=== PATIENT | female | born 1965 | race Caucasian/White ===

== ENCOUNTER 2020-05-30 13:42 | Inpatient (IN) | payer BC, SELFPAY ==
[2020-05-30 13:43] VITALS: BP 157/95; PULSE 107; RESP 16; TEMP 36.3; O2SAT 99; BMI 30.2
--- NOTE | 2020-05-30 14:02 | CT_ITS ---
STUDY: CT ABDOMEN AND PELVIS WITH CONTRAST REASON FOR EXAM: Female, 54 years old. Abdominal pain. Fever. RADIATION DOSAGE (If Supplied By Facility): CTDIvol = ( 12.86 ) mGy, DLP = ( 776.89 ) mGycm TECHNIQUE: Transaxial images were obtained from the dome of the diaphragm to the symphysis pubis with oral contrast. 100 ml of ISOVUE-300 contrast was administered. Sagittal and coronal images were reconstructed. Individualized dose optimization techniques were used for this CT. COMPARISON: None. FINDINGS: The visualized lung bases are clear. The visualized portions of the heart and pericardium are within normal limits. There are no calcified gallstones present. The liver is within normal limits. There are no suspicious hepatic lesions. The spleen is normal in size. The pancreas is within normal limits. The adrenal glands are within normal limits. There are no renal or ureteral stones. There is no hydronephrosis. There are no focal renal lesions. Normal visualized stomach. There is no bowel obstruction. There is bowel wall thickening noted in the sigmoid colon with adjacent stranding. This is consistent with colitis. There is a 2.6 x 2.2 cm air and fluid collection within the wall of the sigmoid colon which is consistent with an intramural abscess. There is no free air or free fluid. The appendix is visualized and appears normal. The aorta is normal in caliber. The calcifications in the uterus, consistent with fibroids. There are no destructive osseous lesions. CT/Abdomen/Pelvis WITH Contrast IMPRESSION: Colitis in the sigmoid colon. 2.6 x 2.2 cm air and fluid collection within the wall of the sigmoid colon which is consistent with an intramural abscess. Electronically Signed: Carlos Choi, at 16:16 EDT Tel , Service support ,
--- NOTE | 2020-05-30 14:03 | ED.DCSUM_ITS ---
History of Present Illness Chief Complaint: Abd Pain Informant: Patient Onset: Days Context: Gradual Onset Timing: Waxes and wanes Current Severity: Moderate Maximum Severity: Moderate Narrative: Patient presents with lower abdominal pain and cramping. She states symptoms started 4 days ago. This initially was consistent with her IBS flares, however never really calmed down. Last night she developed a fever of 100. Fever did respond to Advil. She was seen by a nurse practitioner at her PCPs office this morning who noted guarding and rebound and sent the patient to the emergency room for further evaluation. Patient reports her last colonoscopy was 7 years ago at which time IBS was diagnosed. She denies any prior abdominal surgeries. - Past Medical History (1) Irritable bowel syndrome Status: Chronic (2) Ankylosing spondylitis Status: Chronic Past Medical History - Allergies and Home Meds Allergies/Adverse Reactions: Allergies ampicillin Allergy (Verified 05/30/20 13:46) Rash Primary Care Physician: Gabriel Mccain III, MD [Primary Care Provider] - Prior records reviewed: Yes Review of Systems General: Reports: Fever. Denies: Chills Eyes: Denies: Visual changes - bilaterally ENT: Denies: Bilateral ear pain Cardiovascular: Denies: Chest pain Respiratory: Denies: Dyspnea, Cough Gastrointestinal: Reports: Abdominal pain. Denies: Vomiting Genitourinary: Denies: Dysuria Musculoskeletal: Denies: Swelling, Extremity Pain Skin: Denies: Rash Neurological: Denies: Headache Hematologic: Denies: Easy bruising, Easy bleeding Allergy: Denies: Uticaria Physical Exam Vital Signs/Narrative: Vital Signs Temp Pulse Resp BP Pulse Ox 05/30/20 13:43 97.3 F L 107 H 16 157/95 H 99 Inital Vital Signs reviewed: Yes General: Well nourished, Well developed Head: Normocephalic ENT: Moist mucous membranes Neck: Supple Cardiovascular: Regular rate, Regular rhythm Respiratory: No distress, CTA bilaterally Abdomen: Soft, Tender - Lower abdominal tenderness with guarding and rebound., Guarding, Rebound tenderness, Hypoactive bowel sounds Back: Nontender Extremities: Nontender Skin: Normal color Neurological: Alert, Oriented x3 Psychological: Normal affect Diagnostic/Tx/Re-eval Impressions Abdomen/Pelvis CT 05/30/20 14:02 IMPRESSION: Colitis in the sigmoid colon. 2.6 x 2.2 cm air and fluid collection within the wall of the sigmoid colon which is consistent with an intramural abscess. Electronically Signed: Carlos Choi, at 16:16 EDT Tel , Service support , 05/30/20 14:02 Abdomen/Pelvis WITH Contrast [CT] Stat Laboratory Results 05/30/20 05/30/20 05/30/20 13:50 13:50 14:45 WBC 11.7 H RBC 4.54 Hgb 14.9 Hct 43.6 MCV 96.0 MCH 32.8 H MCHC 34.2 RDW Std Deviation 44.2 H RDW Coeff of Keren 12.6 Plt Count 315 MPV 8.7 Immature Gran % (Auto) 0.400 Neut % (Auto) 74.2 H Lymph % (Auto) 16.0 L [place] % (Auto) 8.1 Eos % (Auto) 0.8 Baso % (Auto) 0.5 Absolute Neuts (auto) 8.7 H Absolute Lymphs (auto) 1.86 Nucleated RBC % 0 Sodium 138 Potassium 3.6 Chloride 102 Carbon Dioxide 26.0 Anion Gap 10 BUN 8 Creatinine 0.66 Estim Creat Clear Calc 82.19 Est GFR (MDRD) Af Amer 118 Est GFR (MDRD) Non-Af 98 BUN/Creatinine Ratio 12.0 Glucose 90 Calcium 9.3 Urine Color Yellow Urine Clarity Sl. Cloudy Urine pH 6.5 Ur Specific [place] 1.010 Urine Protein Negative Urine Glucose (UA) Normal Urine Ketones 15 H Urine Occult Blood 10 H Urine Nitrite Negative Urine Bilirubin Negative Urine Urobilinogen Normal Ur Leukocyte Esterase 100 H Urine RBC 0-5 SEEN Urine WBC 10-25 SEEN Ur Squamous Epith Cells 0-5 SEEN Urine Bacteria 1+ Urine Mucus 0 SEEN - Medical Decision Making Patient was given morphine and Zofran for pain on arrival. She is given IV fluids. Upon completion of her urinalysis she was given a p.o. dose of Cipro and a urine culture was sent. CT returned with evidence of a 2.6 x 2.2 cm air- fluid collection in the wall of the sigmoid consistent with an intramural abscess. On repeat evaluation patient is resting comfortably. She has never seen any of the general surgeons in town previously. I spoke with Dr. Pati guido. He stated that the size of the abscess would initially be treated with IV antibiotics. He is happy to keep her here locally understanding that if she gets worse she will be taken to the operating room for surgery. Patient voices understanding and agreement with this plan. ED Disposition - Plan for ED Patient: Disposition: Acute Care Hospital [facility] Diagnosis: Abscess of sigmoid colon Referrals: Gabriel Mccain III, MD [Primary Care Provider] -
[2020-05-30 14:20] LABS: Absolute Lymphocyte Count 1.86 X10^3/uL (0.83-4.51); Absolute Neutrophil Count 8.7 X10^3/uL (2.0-7.7); Basophil# 0.06 X10^3/uL; Basophil% 0.5 % (0-1); Eosinophil# 0.09 X10^3/uL; Eosinophils% 0.8 % (0-5); Hematocrit 43.6 % (37-47); Hemoglobin 14.9 g/dL (12.0-15.0); Lymphocyte # 1.86 X10^3/ul (4.0); Mean Corp Hgb Conc 34.2 g/dL (32-36); Mean Corpuscular Hgb 32.8 pg (27.0-32.0); Mean Platelet Vol. 8.7 fl (6.2-12.0); Monocyte# 0.95 X10^3/uL; Monocyte% 8.1 % (0-10); NRBC Flagged by Analyzer 0 % (0-5); Neutrophil # 8.65 X10^3/uL (2.7-7.7); Neutrophil % 74.2 % (47-70); Platelet Count 315 K/mm3 (150-450); RBC Distribution Width CV 12.6 % (11.6-14.6); RBC Distribution Width SD 44.2 fl (35.1-43.9); Red Blood Count 4.54 M/mm3 (4.2-5.4); White Blood Count 11.7 K/mm3 (4.4-11.0)
[2020-05-30 14:29] LABS: Anion Gap 10 (5-15); BUN 8 mg/dL (7-18); Calcium,Total 9.3 mg/dL (8.5-10.1); Chloride 102 mmol/L (98-107); Creatinine, Serum 0.66 mg/dL (0.55-1.02); EST Glomerular Filtration Rate 98 mL/min (>60); Est Glom Filt Rate - Afr Amer 118 mL/min (>60); Estimated Creatinine Clearance 82.19 ml/min; Glucose 90 mg/dL (74-106); Potassium 3.6 mmol/L (3.5-5.1); Sodium Level 138 mmol/L (136-145)
[2020-05-30] MEDS: Morphine 4 MG/ML Syringe IV ×2 (14:36→17:26)
[2020-05-30] MEDS: Ondansetron 4 MG/2 ML Vial IV (14:36)
[2020-05-30] MEDS: 0.9% Normal Saline 1,000 ML 150 ML IV (14:37)
[2020-05-30 14:53] LABS: Mucous, Urine 0 SEEN /hpf (<or=2+)
[2020-05-30 15:09] LABS: Color, Urine Yellow (Yellow); Glucose, Dipstick Normal (Normal); Ketone-Dipstick 15 mg/dl (Negative); Leukocyte Esterase-Dipstick 100 /ul (Negative); Nitrite-Dipstick Negative (Negative); Occult Blood-Urine 10 /ul (Negative); Protein-Dipstick Negative (Negative); Urine Bilirubin Dipstick Negative (Negative); Urine Clarity Sl. Cloudy (Clear); Urine Urobilinogen Normal (Normal); Urine pH 6.5 (5.0 - 8.0)
[2020-05-30 15:16] LABS: Bacteria 1+ /hpf (None Seen); Red Blood Cells-Urine 0-5 SEEN /hpf (0-5); Squamous Epithelial Cells - UA 0-5 SEEN /hpf (5-10); White Blood Cells 10-25 SEEN /hpf (0-5)
[2020-05-30] MEDS: Ciprofloxacin 500 MG Tablet PO (16:09)
[2020-05-30 16:10] VITALS: BP 152/88; PULSE 66; RESP 16; TEMP 37.1; O2SAT 97
[2020-05-30] MEDS: metroNIDAZOLE 500 MG/100 ML BAG 100 MG IV ×2 (17:26→21:19)
[2020-05-30 17:32] VITALS: BMI 30.3
[2020-05-30 17:40] VITALS: BP 158/80; PULSE 70; RESP 17; TEMP 36.8; O2SAT 97
--- NOTE | 2020-05-30 17:44 | PCM.HP.STD ---
Problem List (1) Diverticulitis of large intestine with abscess Status: Acute Qualifiers: Diverticulitis bleeding: without bleeding Qualified Code(s): K57.20 - Diverticulitis of large intestine with perforation and abscess without bleeding History of Present Illness Date of Admission: 05/30/20 The patient is a 54 year old F presents with 4-day history of lower abdominal pain. Patient reports this started Tuesday afternoon/evening. Patient reports no nausea or vomiting. She says that the pain is been going on has been in her left lower quadrant since then and it got worse today and she had a fever at home. Patient has never had diverticulitis in the past. Her last colonoscopy was 7 years ago when she was diagnosed with IBS. Past Medical History Past Medical History (Chronic Problems): Chronic Problems Irritable bowel syndrome (Chronic) Ankylosing spondylitis (Chronic) Allergies ampicillin Allergy (Verified 05/30/20 13:46) Rash Home Medications: Ambulatory Orders Medication Instructions Recorded Amlodipine [Norvasc] 5 mg PO DAILY 05/30/20 Citalopram [Celexa] 20 mg PO DAILY 05/30/20 Hydrochlorothiazide 12.5 mg PO DAILY 05/30/20 Surgical History: no surgical history Smoking Status: Former smoker - *Family History Maternal History Items: No pertinent history Review of Systems Constitutional: Reports: Fever. Denies: Anorexia, Chills HEENT: Denies: Difficulty Swallowing Cardiovascular: Denies: Chest Pain Respiratory: Denies: Cough, Shortness of Breath Gastrointestinal: Reports: Abdominal Pain. Denies: Constipation, Diarrhea, Nausea, Vomiting Musculoskeletal: Denies: Joint Tenderness Skin: Denies: Jaundice Neurological: Denies: Balance problems Psychiatric: Reports: Anxiety Hematologic/ Lymphatic: Denies: Anemia VTE Information - Inpt Only VTE Present on Admission: No VTE Mechan Device Prophylaxis: SCD's Patient Problems: Active and Suspected Problems Abscess of sigmoid colon (Acute) Diverticulitis of large intestine with abscess (Acute) - Physical Exam Vitals/I&O's: Vital Signs Temp Pulse Resp BP Pulse Ox 98.2 F 70 17 158/80 H 97 05/30/20 17:40 05/30/20 17:40 05/30/20 17:40 05/30/20 17:40 05/30/20 17:40 Oxygen Delivery Method Room Air Weight: 176 lb 5.917 oz Body Mass Index (BMI) 30.2 General: Alert, Oriented x3 Neck: No JVD Lungs: Normal air movement Cardiovascular: Regular rate, Regular Rhythm Abdomen: Soft, Non-Distended, Tender - Tender in the left lower quadrant. Also mild tenderness to deep palpation in the right lower quadrant Extremities: No clubbing Musculoskeletal: No Tenderness to Palpation of Joints or Extremities Neurological: Cranial nerves II-XII grossly intact Psych/Mental Status: Normal Affect Laboratory Results 05/30/20 13:50: WBC 11.7 H, RBC 4.54, Hgb 14.9, Hct 43.6, MCV 96.0, MCH 32.8 H, MCHC 34.2, RDW Std Deviation 44.2 H, RDW Coeff of Keren 12.6, Plt Count 315, MPV 8.7, Immature Gran % (Auto) 0.400, Neut % (Auto) 74.2 H, Lymph % (Auto) 16.0 L, [place] % (Auto) 8.1, Eos % (Auto) 0.8, Baso % (Auto) 0.5, Absolute Neuts (auto) 8.7 H, Absolute Lymphs (auto) 1.86, Nucleated RBC % 0 05/30/20 13:50: Sodium 138, Potassium 3.6, Chloride 102, Carbon Dioxide 26.0, Anion Gap 10, BUN 8, Creatinine 0.66, Estim Creat Clear Calc 82.19, Est GFR (MDRD) Af Amer 118, Est GFR (MDRD) Non-Af 98, BUN/Creatinine Ratio 12.0, Glucose 90, Calcium 9.3 05/30/20 14:45: Urine Color Yellow, Urine Clarity Sl. Cloudy, Urine pH 6.5, Ur Specific [place] 1.010, Urine Protein Negative, Urine Glucose (UA) Normal, Urine Ketones 15 H, Urine Occult Blood 10 H, Urine Nitrite Negative, Urine Bilirubin Negative, Urine Urobilinogen Normal, Ur Leukocyte Esterase 100 H, Urine RBC 0-5 SEEN, Urine WBC 10-25 SEEN, Ur Squamous Epith Cells 0-5 SEEN, Urine Bacteria 1+, Urine Mucus 0 SEEN Clinical Impression(s) from Imaging Studies Abdomen/Pelvis CT 05/30/20 14:02 IMPRESSION: Colitis in the sigmoid colon. 2.6 x 2.2 cm air and fluid collection within the wall of the sigmoid colon which is consistent with an intramural abscess. Electronically Signed: Carlos Choi, at 16:16 EDT Tel , Service support , Current Medications Sodium Chloride () 1,000 mls @ 150 mls/hr IV .[id number] [facility] Last Admin: 05/30/20 14:37 Dose: 150 mls/hr Documented by: Metronidazole (Flagyl) 500 mg in 100 mls @ 100 mls/hr IV X1 ONE Stop: 05/30/20 18:06 Last Admin: 05/30/20 17:26 Dose: 100 mls/hr Documented by: Assessment/Plan All Active Problems Abscess of sigmoid colon (Acute) Diverticulitis of large intestine with abscess (Acute) 54-year-old female with diverticulitis with abscess 1. The patient has acute diverticulitis of the sigmoid colon with a small 2.2 cm air-fluid level in the wall of the colon. The patient likely has diverticulitis with small abscess without bleeding. I recommend the patient be admitted and kept n.p.o. with only ice chips and started on IV antibiotics. Recheck labs in the morning. I explained her that if this condition worsens at all and would necessitate surgery and a sigmoid colectomy. Patient understands. All questions were answered. Hema Wang MD Pager: [facility] [address] [place] [address], [address] [place] [address] Office:
[2020-05-30 18:00] VITALS: BMI 31.8
--- NOTE | 2020-05-30 19:30 | NURSING ---
Pt noted to have IV dose of Flagyl in ED that finished today at 183 according to BRYON. Called pharmacy to verify that it's ok to given 2200 dose of Flagyl tonight. Per pharmacy, ok to give 2200 dose of Flagyl.
[2020-05-30] MEDS: 0.9% Normal Saline 1,000 ML 125 ML IV (19:34)
[2020-05-30] MEDS: Morphine 2 MG/ML Syringe IV ×2 (19:34→20:20)
[2020-05-30 20:16] VITALS: BP 130/79; PULSE 71; RESP 18; TEMP 36.4; O2SAT 96
[2020-05-31 01:41] VITALS: BP 127/77; PULSE 81
[2020-05-31] MEDS: Morphine 2 MG/ML Syringe IV ×2 (01:43→08:04)
[2020-05-31 02:29] VITALS: BP 116/64; PULSE 84; RESP 16; TEMP 37.1; O2SAT 93
[2020-05-31] MEDS: 0.9% Normal Saline 1,000 ML 125 ML IV ×2 (04:45→16:51)
[2020-05-31] MEDS: metroNIDAZOLE 500 MG/100 ML BAG 100 MG IV ×3 (05:06→21:44)
[2020-05-31] MEDS: Ciprofloxacin 400 MG/200 ML BAG 200 MG IV ×2 (06:39→20:31)
[2020-05-31 07:54] VITALS: BP 108/67; PULSE 79; RESP 16; TEMP 36.9; O2SAT 93
[2020-05-31 07:57] LABS: Anion Gap 7 (5-15); BUN 7 mg/dL (7-18); BUN/Creat Ratio 11.8 RATIO (10-20); Calcium,Total 8.2 mg/dL (8.5-10.1); Chloride 108 mmol/L (98-107); Creatinine, Serum 0.59 mg/dL (0.55-1.02); EST Glomerular Filtration Rate 111 mL/min (>60); Est Glom Filt Rate - Afr Amer 135 mL/min (>60); Estimated Creatinine Clearance 91.94 ml/min; Glucose 125 mg/dL (74-106); Magnesium 2.1 mg/dL (1.6-2.6); Phosphorus 3.6 mg/dL (2.5-4.9); Potassium 3.4 mmol/L (3.5-5.1); Sodium Level 140 mmol/L (136-145)
[2020-05-31] MEDS: hydroCHLOROthiazide 12.5mg 12.5 MG PO (07:59)
[2020-05-31] MEDS: Citalopram 20 MG Tablet PO (07:59)
[2020-05-31] MEDS: amLODIPine 5 MG Tablet PO (07:59)
[2020-05-31 08:25] LABS: Absolute Lymphocyte Count 1.17 X10^3/uL (0.83-4.51); Absolute Neutrophil Count 6.8 X10^3/uL (2.0-7.7); Basophil# 0.04 X10^3/uL; Basophil% 0.5 % (0-1); Eosinophil# 0.08 X10^3/uL; Eosinophils% 0.9 % (0-5); Hematocrit 38.9 % (37-47); Hemoglobin 12.9 g/dL (12.0-15.0); Lymphocyte # 1.17 X10^3/ul (4.0); Lymphocyte % 13.5 % (19-41); Mean Corp Hgb Conc 33.2 g/dL (32-36); Mean Corpuscular Hgb 32.3 pg (27.0-32.0); Mean Corpuscular Volume 97.5 fL (81-99); Monocyte# 0.54 X10^3/uL; Monocyte% 6.2 % (0-10); NRBC Flagged by Analyzer 0 % (0-5); Neutrophil # 6.78 X10^3/uL (2.7-7.7); Neutrophil % 78.3 % (47-70); Platelet Count 297 K/mm3 (150-450); RBC Distribution Width CV 12.5 % (11.6-14.6); RBC Distribution Width SD 44.7 fl (35.1-43.9); Red Blood Count 3.99 M/mm3 (4.2-5.4); White Blood Count 8.7 K/mm3 (4.4-11.0)
--- NOTE | 2020-05-31 08:42 | PN.SURG_ITS ---
Patient Problems: Active and Suspected Problems Abscess of sigmoid colon (Acute) Diverticulitis of large intestine with abscess (Acute) Subjective: Patient reports improvement. No flatus. No nausea or vomiting. - Physical Exam Vitals/I&O's: Vital Signs Temp Pulse Resp BP Pulse Ox 98.5 F 79 16 108/67 93 05/31/20 07:54 05/31/20 07:54 05/31/20 07:54 05/31/20 07:54 05/31/20 07:54 Oxygen Delivery Method Room Air Weight: 185 lb 3.013 oz Body Mass Index (BMI) 31.8 Intake and Output for Last 24 Hours 05/29/20 05/30/20 05/31/20 23:59 23:59 23:59 Intake Total 1311.67 / 1311.67 1422.09 / 1422.09 Output Total 900 / 900 700 / 700 Balance 411.67 / 411.67 722.09 / 722.09 General: Alert, Oriented x3 Lungs: Normal air movement Abdomen: Soft, Non-Distended, Tender - Tender in the left lower quadrant Laboratory Results 05/30/20 13:50: WBC 11.7 H, RBC 4.54, Hgb 14.9, Hct 43.6, MCV 96.0, MCH 32.8 H, MCHC 34.2, RDW Std Deviation 44.2 H, RDW Coeff of Keren 12.6, Plt Count 315, MPV 8.7, Immature Gran % (Auto) 0.400, Neut % (Auto) 74.2 H, Lymph % (Auto) 16.0 L, [place] % (Auto) 8.1, Eos % (Auto) 0.8, Baso % (Auto) 0.5, Absolute Neuts (auto) 8.7 H, Absolute Lymphs (auto) 1.86, Nucleated RBC % 0 05/30/20 13:50: Sodium 138, Potassium 3.6, Chloride 102, Carbon Dioxide 26.0, Anion Gap 10, BUN 8, Creatinine 0.66, Estim Creat Clear Calc 82.19, Est GFR (MDRD) Af Amer 118, Est GFR (MDRD) Non-Af 98, BUN/Creatinine Ratio 12.0, Glucose 90, Calcium 9.3 05/30/20 14:45: Urine Color Yellow, Urine Clarity Sl. Cloudy, Urine pH 6.5, Ur Specific [place] 1.010, Urine Protein Negative, Urine Glucose (UA) Normal, Urine Ketones 15 H, Urine Occult Blood 10 H, Urine Nitrite Negative, Urine Bilirubin Negative, Urine Urobilinogen Normal, Ur Leukocyte Esterase 100 H, Urine RBC 0-5 SEEN, Urine WBC 10-25 SEEN, Ur Squamous Epith Cells 0-5 SEEN, Urine Bacteria 1+, Urine Mucus 0 SEEN 05/31/20 07:15: WBC 8.7, RBC 3.99 L, Hgb 12.9, Hct 38.9, MCV 97.5, MCH 32.3 H, MCHC 33.2, RDW Std Deviation 44.7 H, RDW Coeff of Keren 12.5, Plt Count 297, MPV 9.0, Immature Gran % (Auto) 0.600, Neut % (Auto) 78.3 H, Lymph % (Auto) 13.5 L, [place] % (Auto) 6.2, Eos % (Auto) 0.9, Baso % (Auto) 0.5, Absolute Neuts (auto) 6.8, Absolute Lymphs (auto) 1.17, Nucleated RBC % 0 05/31/20 07:15: Sodium 140, Potassium 3.4 L, Chloride 108 H, Carbon Dioxide 25.0, Anion Gap 7, BUN 7, Creatinine 0.59, Estim Creat Clear Calc 91.94, Est GFR (MDRD) Af Amer 135, Est GFR (MDRD) Non-Af 111, BUN/Creatinine Ratio 11.8, Glucose 125 H, Calcium 8.2 L, Phosphorus 3.6, Magnesium 2.1 Current Medications Acetaminophen (Tylenol) 650 mg PO Q4H PRN PRN PRN Reason: Pain1-10 or Fever Amlodipine Besylate (Norvasc) 5 mg PO DAILY [facility] Last Admin: 05/31/20 07:59 Dose: 5 mg Documented by: Citalopram Hydrobromide (Celexa) 20 mg PO DAILY [facility] Last Admin: 05/31/20 07:59 Dose: 20 mg Documented by: Hydrochlorothiazide () 12.5 mg PO DAILY [facility] Last Admin: 05/31/20 07:59 Dose: 12.5 mg Documented by: Sodium Chloride () 1,000 mls @ 125 mls/hr IV .Q8H [facility] Last Infusion: 05/31/20 08:25 Dose: 125 mls/hr Documented by: Pantoprazole Sodium 40 mg/ (Sodium Chloride) 110 mls @ 330 mls/hr IV Q24 [facility] Last Infusion: 05/31/20 08:25 Dose: Infused Documented by: Ciprofloxacin (Cipro) 400 mg in 200 mls @ 200 mls/hr IV Q12H [facility] Last Infusion: 05/31/20 07:48 Dose: Infused Documented by: Metronidazole (Flagyl) 500 mg in 100 mls @ 100 mls/hr IV Q8 [facility] Last Infusion: 05/31/20 06:06 Dose: Infused Documented by: Morphine Sulfate () 2 - 4 mg IV Q2H PRN PRN PRN Reason: Pain Score 4-10/10 Last Admin: 05/31/20 08:04 Dose: 2 mg Documented by: Ondansetron HCl (Zofran) 4 mg IV Q6H PRN PRN PRN Reason: NAUSEA Sodium Chloride () 10 - 40 ml IV UD PRN PRN Reason: SALINE FLUSH Medical Necessity - Tobacco Use Smoking Status: Former smoker Assessment/Plan All Active Problems Abscess of sigmoid colon (Acute) Diverticulitis of large intestine with abscess (Acute) 54-year-old female with diverticulitis with intramural abscess 1. Patient reports improvement she was still very tender to palpation. Her white count is returned normal. Continue n.p.o. and IV antibiotics until pain resolving. Encouraged ambulation. We will order Lovenox for DVT prophylaxis and she is on a PPI. Hema Wang MD Pager: [facility] [address] [place] [address], [address] [place] [phone] Office:
[2020-05-31] MEDS: Enoxaparin 40 MG/0.4 ML Syringe SC (09:37)
[2020-05-31 13:58] VITALS: BP 114/64; PULSE 71; RESP 18; TEMP 37; O2SAT 94
--- NOTE | 2020-05-31 16:02 | CM.UR ---
MURTAZA MEDINA Face to Face with patient for initial transition planning/care coordination assessment. RN ADAM introduced self and role at [facility]. Patient lying in bed, alert and oriented, at bedside. Patient willing to participate in assessment and is able to answer all questions appropriately. Care providers, pharmacy, and demographics verified. Patient wishes to discharge home, denies need for home health at this time. Patient states she has no further needs or concerns at this time. CM to follow for discharge planning needs that may arise. PCP: Kalyn Specialists: None Preferred Pharmacy: [facility] Insurance: [employer] Prescription Benefit: yes. No problems covering medications. Living Will/HPOA: states is her civil rights attorney and actually skye them up however she has never signed them. States she will take care of it when discharged. LNOK: Living Arrangements: Patient lives with in a 2 story home. Denies any problems with accessing 2nd floor. Patient states she is independent at home. Transportation: self, DME: No DME at home. Denies any DME needs. HHC/SNF: Denies Disposition Plan: Patient to discharge home with to help. Jake Maciel RN, CCM.
[2020-05-31] MEDS: Potassium Chloride 10mEq/100mL 10 MEQ/100 ML IV.SOLN. 100 MEQ IV BOLUS ×3 (16:51→18:59)
[2020-05-31] MEDS: 0.9% Saline Lock 10 ML Syringe IV (19:56)
[2020-05-31] MEDS: Acetaminophen 325 MG Tablet 650 MG PO (19:56)
[2020-05-31 20:00] VITALS: BP 124/74; PULSE 71; RESP 16; TEMP 37.3; O2SAT 99
[2020-06-01 02:10] VITALS: BP 125/62; PULSE 66; RESP 16; TEMP 36.9; O2SAT 96
[2020-06-01] MEDS: 0.9% Normal Saline 1,000 ML 125 ML IV ×3 (02:22→23:32)
[2020-06-01 05:31] LABS: Absolute Lymphocyte Count 1.44 X10^3/uL (0.83-4.51); Absolute Neutrophil Count 3.6 X10^3/uL (2.0-7.7); Basophil# 0.05 X10^3/uL; Basophil% 0.9 % (0-1); Eosinophil# 0.15 X10^3/uL; Eosinophils% 2.6 % (0-5); Hematocrit 39.6 % (37-47); Hemoglobin 13.4 g/dL (12.0-15.0); Lymphocyte # 1.44 X10^3/ul (4.0); Lymphocyte % 24.8 % (19-41); Mean Corp Hgb Conc 33.8 g/dL (32-36); Mean Corpuscular Hgb 32.4 pg (27.0-32.0); Mean Corpuscular Volume 95.9 fL (81-99); Mean Platelet Vol. 8.5 fl (6.2-12.0); Monocyte# 0.57 X10^3/uL; Monocyte% 9.8 % (0-10); NRBC Flagged by Analyzer 0 % (0-5); Neutrophil # 3.56 X10^3/uL (2.7-7.7); Neutrophil % 61.2 % (47-70); Platelet Count 279 K/mm3 (150-450); RBC Distribution Width CV 12.3 % (11.6-14.6); RBC Distribution Width SD 43.5 fl (35.1-43.9); Red Blood Count 4.13 M/mm3 (4.2-5.4); White Blood Count 5.8 K/mm3 (4.4-11.0)
[2020-06-01 05:50] LABS: Anion Gap 9 (5-15); BUN 5 mg/dL (7-18); BUN/Creat Ratio 10.1 RATIO (10-20); Calcium,Total 8.3 mg/dL (8.5-10.1); Chloride 107 mmol/L (98-107); EST Glomerular Filtration Rate 137 mL/min (>60); Est Glom Filt Rate - Afr Amer 165 mL/min (>60); Estimated Creatinine Clearance 108.49 ml/min; Glucose 79 mg/dL (74-106); Potassium 3.5 mmol/L (3.5-5.1); Sodium Level 140 mmol/L (136-145)
[2020-06-01] MEDS: metroNIDAZOLE 500 MG/100 ML BAG 100 MG IV ×3 (06:03→21:14)
[2020-06-01] MEDS: Ciprofloxacin 400 MG/200 ML BAG 200 MG IV ×2 (07:24→18:13)
--- NOTE | 2020-06-01 08:09 | PN.SURG_ITS ---
Patient Problems: Active and Suspected Problems Abscess of sigmoid colon (Acute) Diverticulitis of large intestine with abscess (Acute) Subjective: Patient reports improvement from yesterday. She is having liquid bowel movements and passing flatus. No nausea or vomiting. - Physical Exam Vitals/I&O's: Vital Signs Temp Pulse Resp BP Pulse Ox 98.4 F 66 16 125/62 H 96 06/01/20 02:10 06/01/20 02:10 06/01/20 02:10 06/01/20 02:10 06/01/20 02:10 Oxygen Delivery Method Room Air Weight: 185 lb 3.013 oz Body Mass Index (BMI) 31.8 Intake and Output for Last 24 Hours 05/30/20 05/31/20 06/01/20 23:59 23:59 23:59 Intake Total 1311.67 / 1311.67 3621.25 / 3721.25 1114.59 / 1114.59 Output Total 900 / 900 1400 / 1400 Balance 411.67 / 411.67 2221.25 / 2321.25 1114.59 / 1114.59 General: Alert, Oriented x3 Neck: No JVD Lungs: Normal air movement Cardiovascular: Regular rate, Regular Rhythm Abdomen: Soft, Non-Distended, Tender - oven tender to palpation in the left lower quadrant. No guarding or rebound. Microbiology Past 72 Hours 05/30/20 14:45 Urine, Clean Catch Urine Culture - Final Staphylococcus haemolyticus Laboratory Results 05/31/20 07:15: WBC 8.7, RBC 3.99 L, Hgb 12.9, Hct 38.9, MCV 97.5, MCH 32.3 H, MCHC 33.2, RDW Std Deviation 44.7 H, RDW Coeff of Keren 12.5, Plt Count 297, MPV 9.0, Immature Gran % (Auto) 0.600, Neut % (Auto) 78.3 H, Lymph % (Auto) 13.5 L, [place] % (Auto) 6.2, Eos % (Auto) 0.9, Baso % (Auto) 0.5, Absolute Neuts (auto) 6.8, Absolute Lymphs (auto) 1.17, Nucleated RBC % 0 06/01/20 05:24: WBC 5.8, RBC 4.13 L, Hgb 13.4, Hct 39.6, MCV 95.9, MCH 32.4 H, MCHC 33.8, RDW Std Deviation 43.5, RDW Coeff of Keren 12.3, Plt Count 279, MPV 8.5, Immature Gran % (Auto) 0.700, Neut % (Auto) 61.2, Lymph % (Auto) 24.8, [place] % (Auto) 9.8, Eos % (Auto) 2.6, Baso % (Auto) 0.9, Absolute Neuts (auto) 3.6, Absolute Lymphs (auto) 1.44, Nucleated RBC % 0 06/01/20 05:24: Sodium 140, Potassium 3.5, Chloride 107, Carbon Dioxide 24.0, Anion Gap 9, BUN 5 L, Creatinine 0.50 L, Estim Creat Clear Calc 108.49, Est GFR (MDRD) Af Amer 165, Est GFR (MDRD) Non-Af 137, BUN/Creatinine Ratio 10.1, Glucose 79, Calcium 8.3 L Current Medications Acetaminophen (Tylenol) 650 mg PO Q4H PRN PRN PRN Reason: Pain1-10 or Fever Last Admin: 05/31/20 19:56 Dose: 650 mg Documented by: Amlodipine Besylate (Norvasc) 5 mg PO DAILY [facility] Last Admin: 05/31/20 07:59 Dose: 5 mg Documented by: Citalopram Hydrobromide (Celexa) 20 mg PO DAILY [facility] Last Admin: 05/31/20 07:59 Dose: 20 mg Documented by: Enoxaparin Sodium (Lovenox) 40 mg SC DAILY [facility] Last Admin: 05/31/20 09:37 Dose: 40 mg Documented by: Hydrochlorothiazide () 12.5 mg PO DAILY [facility] Last Admin: 05/31/20 07:59 Dose: 12.5 mg Documented by: Sodium Chloride () 1,000 mls @ 125 mls/hr IV .Q8H [facility] Last Infusion: 06/01/20 07:24 Dose: 0 mls/hr Documented by: Pantoprazole Sodium 40 mg/ (Sodium Chloride) 110 mls @ 330 mls/hr IV Q24 [facility] Last Infusion: 05/31/20 08:25 Dose: Infused Documented by: Ciprofloxacin (Cipro) 400 mg in 200 mls @ 200 mls/hr IV Q12H [facility] Last Admin: 06/01/20 07:24 Dose: 200 mls/hr Documented by: Metronidazole (Flagyl) 500 mg in 100 mls @ 100 mls/hr IV Q8 [facility] Last Infusion: 06/01/20 07:03 Dose: Infused Documented by: Morphine Sulfate () 2 - 4 mg IV Q2H PRN PRN PRN Reason: Pain Score 4-10/10 Last Admin: 05/31/20 08:04 Dose: 2 mg Documented by: Ondansetron HCl (Zofran) 4 mg IV Q6H PRN PRN PRN Reason: NAUSEA Sodium Chloride () 10 - 40 ml IV UD PRN PRN Reason: SALINE FLUSH Last Admin: 05/31/20 19:56 Dose: 10 ml Documented by: Medical Necessity - Tobacco Use Smoking Status: Former smoker Assessment/Plan All Active Problems Abscess of sigmoid colon (Acute) Diverticulitis of large intestine with abscess (Acute) 54-year-old female with diverticulitis 1. The patient has diverticulitis with intramural abscess of the sigmoid colon. She reports she is passing gas and having liquid bowel movements. Her pain is improved but she is refining still operator to palpation. White count is normal. I recommend starting clear liquids today but not advancing beyond that until tomorrow. If her pain is continuing to improve tomorrow I will discharge her home on oral antibiotics. Hema Wang MD Pager: [facility] [address] [place] [address], [address] [place] [address] Office:
[2020-06-01 08:10] VITALS: BP 134/84; PULSE 71; RESP 16; TEMP 37.6; O2SAT 97
[2020-06-01] MEDS: hydroCHLOROthiazide 12.5mg 12.5 MG PO (08:31)
[2020-06-01] MEDS: Citalopram 20 MG Tablet PO (08:31)
[2020-06-01] MEDS: amLODIPine 5 MG Tablet PO (08:31)
[2020-06-01] MEDS: Enoxaparin 40 MG/0.4 ML Syringe SC (10:43)
[2020-06-01 14:19] VITALS: BP 137/86; PULSE 63; RESP 14; TEMP 37.6; O2SAT 99
[2020-06-01 21:08] VITALS: BP 150/93; PULSE 56; RESP 16; TEMP 36.7; O2SAT 100
[2020-06-02 03:19] VITALS: BP 129/85; PULSE 71; RESP 16; TEMP 37.3; O2SAT 94
[2020-06-02] MEDS: metroNIDAZOLE 500 MG/100 ML BAG 100 MG IV (05:06)
[2020-06-02] MEDS: Ciprofloxacin 400 MG/200 ML BAG 200 MG IV (06:28)
--- NOTE | 2020-06-02 08:16 | PN.SURG_ITS ---
Patient Problems: Active and Suspected Problems Abscess of sigmoid colon (Acute) Diverticulitis of large intestine with abscess (Acute) Subjective: Patient doing well with minimal pain. She tolerated clears with no increase of pain. She is passing flatus no pain. - Physical Exam Vitals/I&O's: Vital Signs Temp Pulse Resp BP Pulse Ox 99.2 F H 71 16 129/85 H 94 06/02/20 03:19 06/02/20 03:19 06/02/20 03:19 06/02/20 03:06/02/20 03:19 Oxygen Delivery Method Room Air Weight: 185 lb 3.013 oz Body Mass Index (BMI) 31.8 Intake and Output for Last 24 Hours 05/31/20 06/01/20 06/02/20 23:59 23:59 23:59 Intake Total 3621.25 / 3721.25 4922.52 / 4922.52 839.58 / 839.58 Output Total 1400 / 1400 200 / 200 Balance 2221.25 / 2321.25 4722.52 / 4722.52 839.58 / 839.58 General: Alert, Oriented x3 Lungs: Normal air movement Abdomen: Soft, Non-Distended Microbiology Past 72 Hours 05/30/20 14:45 Urine, Clean Catch Urine Culture - Final Staphylococcus haemolyticus Current Medications Acetaminophen (Tylenol) 650 mg PO Q4H PRN PRN PRN Reason: Pain1-10 or Fever Last Admin: 05/31/20 19:56 Dose: 650 mg Documented by: Amlodipine Besylate (Norvasc) 5 mg PO DAILY [facility] Last Admin: 06/01/20 08:31 Dose: 5 mg Documented by: Citalopram Hydrobromide (Celexa) 20 mg PO DAILY [facility] Last Admin: 06/01/20 08:31 Dose: 20 mg Documented by: Enoxaparin Sodium (Lovenox) 40 mg SC DAILY [facility] Last Admin: 06/01/20 10:43 Dose: 40 mg Documented by: Hydrochlorothiazide () 12.5 mg PO DAILY [facility] Last Admin: 06/01/20 08:31 Dose: 12.5 mg Documented by: Ciprofloxacin (Cipro) 400 mg in 200 mls @ 200 mls/hr IV Q12H [facility] Last Admin: 06/02/20 06:28 Dose: 200 mls/hr Documented by: Metronidazole (Flagyl) 500 mg in 100 mls @ 100 mls/hr IV Q8 [facility] Last Infusion: 06/02/20 06:06 Dose: Infused Documented by: Morphine Sulfate () 2 - 4 mg IV Q2H PRN PRN PRN Reason: Pain Score 4-10/10 Last Admin: 05/31/20 08:04 Dose: 2 mg Documented by: Ondansetron HCl (Zofran) 4 mg IV Q6H PRN PRN PRN Reason: NAUSEA Sodium Chloride () 10 - 40 ml IV UD PRN PRN Reason: SALINE FLUSH Last Admin: 05/31/20 19:56 Dose: 10 ml Documented by: Medical Necessity - Tobacco Use Smoking Status: Former smoker Assessment/Plan All Active Problems Abscess of sigmoid colon (Acute) Diverticulitis of large intestine with abscess (Acute) 54-year-old female with diverticulitis with abscess 1. The patient reports that she is not having any pain at rest. She does have some mild pain to deep palpation. She is not having any nausea vomiting tolerated clears. Her white count was normal yesterday. I will advance her to transitional diet and if she tolerates that I would discharge her home on oral Cipro and Flagyl have her follow-up with me for repeat CT and eventual colonoscopy. Hema Wang MD Pager: [facility] [address] [place] [address], [address] [place] [phone] Office:
--- NOTE | 2020-06-02 08:23 | DCINST_ITS ---
- Discharge Diagnoses Current Active Problems: Current Active and Chronic Problems Abscess of sigmoid colon (Acute) Diverticulitis of large intestine with abscess (Acute) You will use the following diet at home:: Fiber restricted Your food should be the consistency of: Regular Discharge Activity: No Restrictions Call your doctor if your incision/area has: Sudden Increased Bleeding, Increased Pain/ Swelling Call your doctor if you observe: Fever of 101 or Higher Allergies/Adverse Reactions: Allergies ampicillin Allergy (Verified 05/30/20 13:46) Rash Medications to take at Discharge Amlodipine [Norvasc] 5 mg PO DAILY 05/30/20 Citalopram [Celexa] 20 mg PO DAILY 05/30/20 Hydrochlorothiazide 12.5 mg PO DAILY 05/30/20 Ciprofloxacin [Cipro] 500 mg PO BID 7 Days #14 tab 06/02/20 metroNIDAZOLE [Flagyl] 500 mg PO Q8H 7 Days #21 tab 06/02/20 The following prescriptions were given: Ciprofloxacin [Cipro] 500 mg PO BID 7 Days #14 tab Transmission Status: Pending to [id number] metroNIDAZOLE [Flagyl] 500 mg PO Q8H 7 Days #21 tab Transmission Status: Pending to [id number] Test Results: Test results from this visit will be discussed in further detail at your follow- up appointment, if applicable. Please Follow Up With: Hema Wang MD When: Please call to schedule 1 week follow up appointment. [phone]
--- NOTE | 2020-06-02 08:26 | DS.PCM_ITS ---
Discharge Date and Diagnosis Date of Admission: 05/30/20 Date of Discharge: 06/02/20 - Primary Discharge Diagnosis Acute Problems: Active Problems Abscess of sigmoid colon (Acute) Diverticulitis of large intestine with abscess (Acute) - Secondary Discharge Diagnosis Chronic Problems: Chronic Problems Irritable bowel syndrome (Chronic) Ankylosing spondylitis (Chronic) Hospital Course and Treatment Imaging Results: Clinical Impression(s) from Imaging Studies Abdomen/Pelvis CT 05/30/20 14:02 IMPRESSION: Colitis in the sigmoid colon. 2.6 x 2.2 cm air and fluid collection within the wall of the sigmoid colon which is consistent with an intramural abscess. Electronically Signed: Carlos Choi, at 16:16 EDT Tel , Service support , Operations: None Procedures: None Summary of Care Provided: The patient is a 54 year old F presented with left lower quadrant pain. CT scan revealed diverticulitis with a small abscess. The patient was admitted and kept n.p.o. and started on IV antibiotics. Once her pain resolved she was started on clear liquid diet and slowly advance. She was then discharged home on oral antibiotics when she was tolerating a diet and passing flatus with no abdominal pain. - Physical Exam Vitals/I&O's: Vital Signs Temp Pulse Resp BP Pulse Ox 99.2 F H 71 16 129/85 H 94 06/02/20 03:19 06/02/20 03:19 06/02/20 03:19 06/02/20 03:19 06/02/20 03:19 Oxygen Delivery Method Room Air Weight: 185 lb 3.013 oz Body Mass Index (BMI) 31.8 Intake and Output for Last 24 Hours 05/31/20 06/01/20 06/02/20 23:59 23:59 23:59 Intake Total 3621.25 / 3721.25 4922.52 / 4922.52 839.58 / 839.58 Output Total 1400 / 1400 200 / 200 Balance 2221.25 / 2321.25 4722.52 / 4722.52 839.58 / 839.58 Microbiology Past 72 Hours 05/30/20 14:45 Urine, Clean Catch Urine Culture - Final Staphylococcus haemolyticus Current Medications Acetaminophen (Tylenol) 650 mg PO Q4H PRN PRN PRN Reason: Pain1-10 or Fever Last Admin: 05/31/20 19:56 Dose: 650 mg Documented by: Amlodipine Besylate (Norvasc) 5 mg PO DAILY [facility] Last Admin: 06/01/20 08:31 Dose: 5 mg Documented by: Citalopram Hydrobromide (Celexa) 20 mg PO DAILY [facility] Last Admin: 06/01/20 08:31 Dose: 20 mg Documented by: Enoxaparin Sodium (Lovenox) 40 mg SC DAILY [facility] Last Admin: 06/01/20 10:43 Dose: 40 mg Documented by: Hydrochlorothiazide () 12.5 mg PO DAILY [facility] Last Admin: 06/01/20 08:31 Dose: 12.5 mg Documented by: Ciprofloxacin (Cipro) 400 mg in 200 mls @ 200 mls/hr IV Q12H [facility] Last Admin: 06/02/20 06:28 Dose: 200 mls/hr Documented by: Metronidazole (Flagyl) 500 mg in 100 mls @ 100 mls/hr IV Q8 [facility] Last Infusion: 06/02/20 06:06 Dose: Infused Documented by: Morphine Sulfate () 2 - 4 mg IV Q2H PRN PRN PRN Reason: Pain Score 4-10/10 Last Admin: 05/31/20 08:04 Dose: 2 mg Documented by: Ondansetron HCl (Zofran) 4 mg IV Q6H PRN PRN PRN Reason: NAUSEA Sodium Chloride () 10 - 40 ml IV UD PRN PRN Reason: SALINE FLUSH Last Admin: 05/31/20 19:56 Dose: 10 ml Documented by: Discharge Activity: No Restrictions Call your doctor if your incision/area has: Sudden Increased Bleeding, Increased Pain/ Swelling Call your doctor if you observe: Fever of 101 or Higher Home Medications: Medications to take at Discharge Amlodipine [Norvasc] 5 mg PO DAILY 05/30/20 Citalopram [Celexa] 20 mg PO DAILY 05/30/20 Hydrochlorothiazide 12.5 mg PO DAILY 05/30/20 Ciprofloxacin [Cipro] 500 mg PO BID 7 Days #14 tab 06/02/20 metroNIDAZOLE [Flagyl] 500 mg PO Q8H 7 Days #21 tab 06/02/20 Following Prescriptions Were Given to Patient: Ciprofloxacin [Cipro] 500 mg PO BID 7 Days #14 tab Transmission Status: [id number] metroNIDAZOLE [Flagyl] 500 mg PO Q8H 7 Days #21 tab Transmission Status: [id number] Primary Care Physician: Gabriel Mccain III, MD [Primary Care Provider] - Please Follow Up With: Hema Wang MD When: Please call to schedule 1 week follow up appointment. [phone] Medical Necessity - Tobacco Use Smoking Status: Former smoker Meaningful Use Info Meaningful Use Diagnoses (Choose all that apply): None applicable
[2020-06-02 10:07] VITALS: BP 123/77; PULSE 64; RESP 18; TEMP 36.9; O2SAT 100
[2020-06-02] MEDS: amLODIPine 5 MG Tablet PO (10:11)
[2020-06-02] MEDS: hydroCHLOROthiazide 12.5mg 12.5 MG PO (10:11)
[2020-06-02] MEDS: Citalopram 20 MG Tablet PO (10:11)
[2020-06-02] MEDS: Enoxaparin 40 MG/0.4 ML Syringe SC (10:12)
[2020-06-02 10:28] VITALS: RESP 18
== END 2020-06-02 12:13 | disposition home or self-care (01) | DRG 392 ==
LOC: ED 17:13 → MS3 17:54
PROVIDERS: Admitting Provider Surgery; Emergency Provider Emergency Medicine; PCP Family Medicine; Visit Provider Surgery
DX: K57.20 Diverticulitis of large intestine with perforation and abscess without bleeding (principal); K58.9 Irritable bowel syndrome, unspecified; M45.9 Ankylosing spondylitis of unspecified sites in spine; Z79.899 Other long term (current) drug therapy; Z87.891 Personal history of nicotine dependence
CPT/HCPCS: 36415; 74177; 80048; 81001; 83735; 84100; 85025; 87077; 87086; 87088; 87186; 99284; J7030; Q9967; A4216; J0744; J2405

== ENCOUNTER → 2020-06-16 16:46 | Outpatient (CLI) | payer BC, SELFPAY ==
[2020-05-30 18:00] VITALS: BMI 31.8
--- NOTE | 2020-06-16 16:47 | CT_ITS ---
STUDY: CT ABDOMEN AND PELVIS WITH CONTRAST REASON FOR EXAM: Female, 54 years old. FOLLOW UP DIVERTICULITIS WITH ABSCESS LABOR DAY WEEKEND. RADIATION DOSAGE (If Supplied By Facility): CTDIvol = ( 18.135 ) mGy, DLP = ( 1000.10 ) mGycm TECHNIQUE: Transaxial images were obtained from the dome of the diaphragm to the symphysis pubis with oral contrast. Oral and amp; IV Readi-CAT and amp; 100mL Isovue-370 was administered. Sagittal and coronal images were reconstructed. Individualized dose optimization techniques were used for this CT. COMPARISON: CT scan 05/30/2020. FINDINGS: The visualized lung bases are unremarkable. The visualized portions of the heart are within normal limits. Normal liver. The gallbladder is contracted, which is probably due to the patient''s nonfasting state. The gallbladder exhibited normal distention on the recent previous study.. Normal spleen. Normal pancreas. Normal bilateral adrenal glands. Normal right kidney. Normal left kidney. Normal visualized stomach. Normal small intestine. There are persistent inflammatory changes of the sigmoid colon with mural thickening and adjacent fat infiltration. Inflammatory changes show substantial improvement from previous study and the previously demonstrated abscess has resolved.. The appendix is visualized on axial images 69-81 and it appears normal. Normal abdominal aorta. Normal inferior vena cava. Normal retroperitoneum. Normal urinary bladder. There is a calcified leiomyoma in the uterine fundus. Normal abdominal wall. There are mild degenerative changes of the visualized lumbar spine. CT/Abdomen/Pelvis WITH Contrast IMPRESSION: Diverticulitis of the sigmoid colon. There is substantial interval improvement of colonic inflammation from previous study and there has been resolution of the previously demonstrated intramural abscess. Leiomyomatous uterus. Electronically Signed: Golden Zelaya MD at 5:40 EDT , Service support ,
== END ==
PROVIDERS: PCP Family Medicine; Referring Provider Surgery; Visit Provider Surgery
DX: K57.20 Diverticulitis of large intestine with perforation and abscess without bleeding (principal)
CPT/HCPCS: 74177; Q9967

== ENCOUNTER 2024-02-20 10:24 | Emergency (ER) | payer BC, SELFPAY ==
[2024-02-20] VITALS (8 sets, daily range): BP systolic 124–165; BP diastolic 70–102; PULSE 59–94; RESP 16–18; TEMP 36.1–36.8; O2SAT 96–100; BMI 30.9
--- NOTE | 2024-02-20 10:39 | CT_ITS ---
STUDY: CT ABDOMEN AND PELVIS WITH CONTRAST REASON FOR EXAM: Female, 58 years old. abd pain -- IV PO Contrast RADIATION DOSAGE (If Supplied By Facility): CTDIvol = ( 20.22 ) mGy, DLP = ( 1051.95 ) mGycm TECHNIQUE: Transaxial images were obtained from the dome of the diaphragm to the symphysis pubis with oral contrast. IV 100mL Isovue-370 was administered. Sagittal and coronal images were reconstructed. Ri Individualized dose optimization techniques were used for this CT. COMPARISON: None. FINDINGS: The visualized lung bases are unremarkable. The visualized portions of the heart are within normal limits. Normal liver. Normal gallbladder and extrahepatic biliary system. Normal spleen. Normal pancreas. Normal bilateral adrenal glands. Normal right kidney. Normal left kidney. Evaluation of the GI tract is limited by absence of oral contrast. Cannot exclude stomach wall thickening. No dilated loops of bowel or evidence for obstruction. Cannot exclude segmental thickening of the almanza of the small or large bowel. Cannot exclude enteritis or colitis. Moderate diffuse fecal retention. There is acute diverticulitis of the mid sigmoid colon with marked wall thickening and perisigmoid inflammatory stranding. No perforation or abscess. Appendix within normal limits. Normal abdominal aorta. Normal inferior vena cava. Normal retroperitoneum. Normal urinary bladder. Normal size of the visualized uterus. 4 cm calcified fibroid noted. Normal abdominal wall. Normal osseous structures. CT/Abdomen/Pelvis WITH Contrast IMPRESSION: Acute diverticulitis of the mid sigmoid colon with marked wall thickening and perisigmoid inflammatory stranding. No perforation or abscess. Recommend repeat exam after treatment. Electronically Signed: Dom Skinner MD at 20:09 EDT ,
--- NOTE | 2024-02-20 10:40 | EX.ED.DYSGE1 ---
HPI <Dr. Bryanna Rea MD - Last Filed: 02/20/24 17:16> History of Present Illness Chief Complaint: Abd Pain Informant: patient Onset/Context/Timing Onset: Days Narrative Narrative: Patient presents secondary to abdominal pain with diarrhea. She has a history of diverticulitis and had surgery in 2019 to have part of her sigmoid colon removed. She states about 10 days ago she started getting left lower quadrant pain with diarrhea. She had a telehealth appointment and they prescribed her Cipro and Flagyl. She finished that antibiotic 2 days ago. She states she has had diarrhea all along but her pain did get better while she was on the antibiotic. Since finishing the antibiotic she is now starting to worsen again and did have measured fever at home. [facility] <Dr. Bryanna Rea MD - Last Filed: 02/20/24 17:16> [facility] Medical History Diverticulitis of large intestine with abscess Abscess of sigmoid colon Ankylosing spondylitis Irritable bowel syndrome Home Medications ?Medication ?Instructions ?Recorded ?Last Taken ?Type amlodipine 5 mg tablet 5 mg PO DAILY 05/30/20 05/30/20 History citalopram 20 mg tablet 20 mg PO DAILY 05/30/20 05/30/20 History hydrochlorothiazide 12.5 mg capsule 12.5 mg PO DAILY 05/30/20 05/30/20 History adalimumab 40 mg/0.4 mL 40 mg subcut .COMPLEX 02/20/24 Unknown History subcutaneous pen kit (Humira(CF) Pen) azathioprine 100 mg tablet 200 mg PO DAILY 02/20/24 Unknown History ciprofloxacin HCl 500 mg tablet 500 mg PO BID #20 tabs 02/20/24 Unknown Rx dicyclomine 20 mg tablet 20 mg PO TID PRN abdominal pain 02/20/24 Unknown Rx #14 tabs hydrocodone-acetaminophen 5-325mg 1 tab PO Q6H PRN PRN Pain 3 days 02/20/24 Unknown Rx 5mg-325mg #10 TABLETS ketorolac 0.4 % eye drops 1 drp RIGHT EYE 4X/DAY 02/20/24 Unknown History metronidazole 500 mg tablet 500 mg PO Q8H 10 days #30 tabs 02/20/24 Unknown Rx prednisolone acetate 1 % eye 1 drp ophthalmic (eye) 4X/DAY 02/20/24 Unknown History drops,suspension Allergy/AdvReac Type Severity Reaction Status Date / Time ampicillin Allergy Rash Verified 06/17/20 15:35 lisinopril AdvReac Mild COUGH Verified 02/20/24 10:25 Family History Mother No problems noted. Surgical History History of colonoscopy (~2012) Social History Smoking Status: Former smoker ROS <Dr. Bryanna Rea MD - Last Filed: 02/20/24 17:16> ROS ED Constitutional Constitutional ED: Reports fever(s); Denies chills Eyes Eyes: Denies change in vision or discharge from eye(s) ENT ENT ED: Denies discharge from eye(s), rhinorrhea or sore throat Cardiovascular Cardiovascular: Denies chest pain or palpitations Respiratory/Chest Respiratory/Chest: Denies cough or dyspnea Gastrointestinal Gastrointestinal: Reports abdominal pain and diarrhea; Denies nausea or vomiting Genitourinary Genitourinary ED: Denies dysuria Musculoskeletal Musculoskeletal: Denies back pain or extremity pain Integumentary Denies Abrasions or rash Neurologic Neurologic: Denies headache(s) or weakness Psychiatric Psychiatric: Denies anxiety or depression Allergic/Immunologic Allergic/Immunologic ED: Denies lip swelling or urticaria EXAM <Dr. Bryanna Rea MD - Last Filed: 02/20/24 17:16> Physical Exam Const Vital Signs: 02/20/24 10:25 02/20/24 11:27 02/20/24 12:00 Temperature 96.9 F L 97.4 F L 97.8 F Temperature Source Temporal Temporal Temporal Pulse Rate 94 59 L 63 Respiratory Rate 16 18 16 Blood Pressure 165/102 H 136/85 H 134/82 H Blood Pressure Mean 123 102 99 Pulse Ox 96 98 98 Oxygen Delivery Method Room Air Room Air Room Air 02/20/24 13:00 02/20/24 14:00 02/20/24 15:00 Temperature 97.9 F 98.3 F Temperature Source Oral Oral Pulse Rate 81 68 80 Respiratory Rate 16 18 16 Blood Pressure 139/76 H 128/79 H 124/70 H Blood Pressure Mean 97 95 88 Pulse Ox 97 100 99 Oxygen Delivery Method Room Air Room Air Room Air 02/20/24 16:00 02/20/24 17:00 Temperature 98 F 98.2 F Temperature Source Temporal Pulse Rate 67 73 Respiratory Rate 16 16 Blood Pressure 128/80 H 127/86 H Blood Pressure Mean 96 99 Pulse Ox 98 99 Oxygen Delivery Method Room Air Positive well nourished and well developed General Appearance ED: well developed HEENT Reports moist mucous membranes Eyes EOMs intact bilaterally Chest Wall inspection of chest normal and palpation of chest normal Resp normal respiratory effort and clear to auscultation bilaterally Cardio regular rate and regular rhythm GI GI Narrative: Abdomen soft with moderate tenderness in the left lower quadrant. No guarding or rebound. Active bowel sounds are noted throughout. Extremity normal to inspection Neuro oriented x3 and no sensory deficits noted Motor Exam: strength 5/5 throughout Psych mental status grossly normal Skin no rashes or lesions noted <Dr. German Chris DO - Last Filed: 02/20/24 22:17> Physical Exam Const Vital Signs: 02/20/24 10:25 02/20/24 11:27 02/20/24 12:00 Temperature 96.9 F L 97.4 F L 97.8 F Temperature Source Temporal Temporal Temporal Pulse Rate 94 59 L 63 Respiratory Rate 16 18 16 Blood Pressure 165/102 H 136/85 H 134/82 H Blood Pressure Mean 123 102 99 Pulse Ox 96 98 98 Oxygen Delivery Method Room Air Room Air Room Air 02/20/24 13:00 02/20/24 14:00 02/20/24 15:00 Temperature 97.9 F 98.3 F Temperature Source Oral Oral Pulse Rate 81 68 80 Respiratory Rate 16 18 16 Blood Pressure 139/76 H 128/79 H 124/70 H Blood Pressure Mean 97 95 88 Pulse Ox 97 100 99 Oxygen Delivery Method Room Air Room Air Room Air 02/20/24 16:00 02/20/24 17:00 Temperature 98 F 98.2 F Temperature Source Temporal Pulse Rate 67 73 Respiratory Rate 16 16 Blood Pressure 128/80 H 127/86 H Blood Pressure Mean 96 99 Pulse Ox 98 99 Oxygen Delivery Method Room Air MDM <Dr. Bryanna Rea MD - Last Filed: 02/20/24 17:16> [facility] Narrative Medical decision making narrative: IV line established. Patient given morphine and Zofran along with IV fluids. Labwork obtained to evaluate for leukocytosis, anemia, and electrolyte derangement. Urinalysis obtained to evaluate for infection/hematuria. CT scan of the abdomen pelvis obtained to evaluate for colitis, diverticulitis, abscess. History & Record Review Discussion w/independent historian: Patient Lab Data Attestation: I reviewed the patient's lab results. Labs: Laboratory Results - last 24 hr 02/20/24 02/20/24 10:40 10:46 WBC 10.5 RBC 4.07 L Hgb 13.9 Hct 41.4 MCV 101.7 H MCH 34.2 H MCHC 33.6 RDW Std Deviation 48.7 H RDW Coeff of Keren 13.0 Plt Count 347 MPV 8.5 Immature Gran % (Auto) 0.500 Neut % (Auto) 70.8 H Lymph % (Auto) 17.4 L [place] % (Auto) 9.4 Eos % (Auto) 1.4 Baso % (Auto) 0.5 Absolute Neuts (auto) 7.4 Absolute Lymphs (auto) 1.83 Nucleated RBC % 0 Sodium 136 Potassium 3.6 Chloride 105 Carbon Dioxide 24.0 Anion Gap 7 BUN 10 Creatinine 0.78 Estim Creat Clear Calc 79.28 Est GFR (MDRD) Af Amer 97 Est GFR (MDRD) Non-Af 80 BUN/Creatinine Ratio 12.9 Glucose 108 H Calcium 9.5 Urine Color Yellow Urine Clarity Sl. Cloudy Urine pH 6.0 Ur Specific [place] 1.015 Urine Protein 15 H Urine Glucose (UA) Normal Urine Ketones 5 H Urine Occult Blood 25 H Urine Nitrite Negative Urine Bilirubin Negative Urine Urobilinogen Normal Ur Leukocyte Esterase 100 H Urine RBC 0 SEEN Urine WBC 0-5 SEEN Ur Squamous Epith Cells 10-25 SEEN Urine Bacteria 0 SEEN Urine Mucus 0 SEEN Radiography Diagnostic Testing: Clinical Impression(s) from Imaging Studies Abdomen/Pelvis CT 02/20/24 10:39 IMPRESSION: Acute diverticulitis of the mid sigmoid colon with marked wall thickening and perisigmoid inflammatory stranding. No perforation or abscess. Recommend repeat exam after treatment. Electronically Signed: Dom Skinner MD at 20:09 EDT , Treatment and Re-Evaluation :: CBC reveals normal white at 10.5 with 71% neutrophils. Chemistry studies are unremarkable and urinalysis reveals no evidence of infection. CT scan of the abdomen/pelvis has been obtained and results are pending. Due to computer/internet issues there has been a significant delay in getting the CT results. Patient would like to leave at this time. I will write her for [place] and [place]. When her CT results are available, she will be called with any significant findings. <Dr. German Chris, DO - Last Filed: 02/20/24 22:17> [facility] MDM Narrative Medical decision making narrative: IV line established. Patient given morphine and Zofran along with IV fluids. Labwork obtained to evaluate for leukocytosis, anemia, and electrolyte derangement. Urinalysis obtained to evaluate for infection/hematuria. CT scan of the abdomen pelvis obtained to evaluate for colitis, diverticulitis, abscess. Dr. Chris dictating: Patient has left AMA earlier prior to my arrival. She was having abdominal pain. Patient decided she would leave before the CT images were read due to delay secondary to radiology downtime. At 9:03 PM I was able to review the results and found that she had acute diverticulitis. I called the patient's phone number and left a message stating that she should call back for the results. I will send her a prescription for Cipro and Flagyl due to her penicillin allergy. 10:17 PM. Have not had a return call. Lab Data Labs: Laboratory Results - last 24 hr 02/20/24 02/20/24 10:40 10:46 WBC 10.5 RBC 4.07 L Hgb 13.9 Hct 41.4 MCV 101.7 H MCH 34.2 H MCHC 33.6 RDW Std Deviation 48.7 H RDW Coeff of Keren 13.0 Plt Count 347 MPV 8.5 Immature Gran % (Auto) 0.500 Neut % (Auto) 70.8 H Lymph % (Auto) 17.4 L [place] % (Auto) 9.4 Eos % (Auto) 1.4 Baso % (Auto) 0.5 Absolute Neuts (auto) 7.4 Absolute Lymphs (auto) 1.83 Nucleated RBC % 0 Sodium 136 Potassium 3.6 Chloride 105 Carbon Dioxide 24.0 Anion Gap 7 BUN 10 Creatinine 0.78 Estim Creat Clear Calc 79.28 Est GFR (MDRD) Af Amer 97 Est GFR (MDRD) Non-Af 80 BUN/Creatinine Ratio 12.9 Glucose 108 H Calcium 9.5 Urine Color Yellow Urine Clarity Sl. Cloudy Urine pH 6.0 Ur Specific [place] 1.015 Urine Protein 15 H Urine Glucose (UA) Normal Urine Ketones 5 H Urine Occult Blood 25 H Urine Nitrite Negative Urine Bilirubin Negative Urine Urobilinogen Normal Ur Leukocyte Esterase 100 H Urine RBC 0 SEEN Urine WBC 0-5 SEEN Ur Squamous Epith Cells 10-25 SEEN Urine Bacteria 0 SEEN Urine Mucus 0 SEEN Radiography Diagnostic Testing: Clinical Impression(s) from Imaging Studies Abdomen/Pelvis CT 02/20/24 10:39 IMPRESSION: Acute diverticulitis of the mid sigmoid colon with marked wall thickening and perisigmoid inflammatory stranding. No perforation or abscess. Recommend repeat exam after treatment. Electronically Signed: Dom Skinner MD at 20:09 EDT , Discharge Plan Triage Chief Complaint: Abd Pain ED Provider: Bryanna Rea Dx/Rx/DC Orders Instructions: ED Abdominal Pain Unkn Cause Fem Prescriptions: New hydrocodone-acetaminophen 5-325 mg tablet 1 tab PO Q6H PRN PRN (Reason: Pain) 3 Days Qty: 10 0RF dicyclomine 20 mg tablet 20 mg PO TID PRN (Reason: abdominal pain) Qty: 14 0RF ciprofloxacin HCl 500 mg tablet 500 mg PO BID Qty: 20 0RF metronidazole 500 mg tablet 500 mg PO Q8H 10 Days Qty: 30 0RF No Action amlodipine 5 MG tablet 5 mg PO DAILY citalopram 20 MG tablet 20 mg PO DAILY hydrochlorothiazide 12.5 mg capsule 12.5 mg PO DAILY prednisolone acetate 1 % drops,suspension 1 drp ophthalmic (eye) 4X/DAY azathioprine 100 mg tablet 200 mg PO DAILY ketorolac 0.4 % drops 1 drp RIGHT EYE 4X/DAY Humira(CF) Pen 40 mg/0.4 mL pen injector kit 40 mg subcut .COMPLEX Rx Instructions: 40 mg subcutaneously every other week; Primary Care Provider: Sweta Jones Referrals: NOT,DEFINED [Non-Staff] - Print Language: Lao Disposition Disposition: Home, Self Care Discharge Date/Time: 02/20/24 17:23
[2024-02-20] MEDS: Ondansetron 4 MG/2 ML Vial IV (10:46)
[2024-02-20] MEDS: Morphine 4 MG/ML Syringe IV ×2 (10:46→15:55)
[2024-02-20 10:50] LABS: Absolute Lymphocyte Count 1.83 X10^3/uL (0.83-4.51); Absolute Neutrophil Count 7.4 X10^3/uL (2.0-7.7); Basophil# 0.05 X10^3/uL; Basophil% 0.5 % (0-1); Eosinophil# 0.15 X10^3/uL; Eosinophils% 1.4 % (0-5); Hematocrit 41.4 % (37-47); Hemoglobin 13.9 g/dL (12.0-15.0); Lymphocyte # 1.83 X10^3/ul (0.83-4.51); Lymphocyte % 17.4 % (19-41); Mean Corp Hgb Conc 33.6 g/dL (32-36); Mean Corpuscular Hgb 34.2 pg (27.0-32.0); Mean Corpuscular Volume 101.7 fL (81-99); Mean Platelet Vol. 8.5 fl (6.2-12.0); Monocyte# 0.99 X10^3/uL; Monocyte% 9.4 % (0-10); NRBC Flagged by Analyzer 0 % (0-5); Neutrophil # 7.44 X10^3/uL (2.7-7.7); Neutrophil % 70.8 % (47-70); Platelet Count 347 K/mm3 (150-450); RBC Distribution Width SD 48.7 fl (35.1-43.9); Red Blood Count 4.07 M/mm3 (4.2-5.4); White Blood Count 10.5 K/mm3 (4.4-11.0)
[2024-02-20 10:50] LABS: Bacteria 0 SEEN /hpf (None Seen); Mucous, Urine 0 SEEN /hpf (<or=2+); Red Blood Cells-Urine 0 SEEN /hpf (0-5)
[2024-02-20] MEDS: 0.9% Normal Saline (1000mL) 1,000 ML 150 ML IV (10:50)
[2024-02-20 10:51] LABS: Color, Urine Yellow (Yellow); Glucose, Dipstick Normal (Normal); Ketone-Dipstick 5 mg/dl (Negative); Leukocyte Esterase-Dipstick 100 /ul (Negative); Nitrite-Dipstick Negative (Negative); Occult Blood-Urine 25 /ul (Negative); Protein-Dipstick 15 mg/dl (Negative); Specific Gravity, Urine 1.015 (1.002-1.030); Urine Bilirubin Dipstick Negative (Negative); Urine Clarity Sl. Cloudy (Clear); Urine Urobilinogen Normal (Normal)
[2024-02-20 10:58] LABS: Squamous Epithelial Cells - UA 10-25 SEEN /hpf (5-10); White Blood Cells 0-5 SEEN /hpf (0-5)
[2024-02-20 11:06] LABS: Anion Gap 7 (5-15); BUN 10 mg/dL (7-18); BUN/Creat Ratio 12.9 RATIO (10-20); Calcium,Total 9.5 mg/dL (8.5-10.1); Chloride 105 mmol/L (98-107); Creatinine, Serum 0.78 mg/dL (0.55-1.02); EST Glomerular Filtration Rate 80 mL/min (>60); Est Glom Filt Rate - Afr Amer 97 mL/min (>60); Estimated Creatinine Clearance 79.28 ml/min; Glucose 108 mg/dL (74-106); Potassium 3.6 mmol/L (3.5-5.1); Sodium Level 136 mmol/L (136-145)
--- NOTE | 2024-02-20 14:50 | ED.RN ---
PT UPDATED REGARDING DELAY IN CT RESULTS.
== END 2024-02-20 17:23 | disposition home or self-care (01) ==
PROVIDERS: Emergency Provider Emergency Medicine; PCP Internal Medicine; Visit Provider Emergency Medicine
DX: K57.32 Diverticulitis of large intestine without perforation or abscess without bleeding (principal); Z90.49 Acquired absence of other specified parts of digestive tract; Z79.899 Other long term (current) drug therapy; Z87.891 Personal history of nicotine dependence
CPT/HCPCS: 74177; 80048; 81001; 85025; 96361; 96374; 96375; 96376; 99283; J7030; Q9967; A4216; J2405